=== PATIENT | female | born 1975 ===

== ENCOUNTER 2023-01-30 05:50 | Day surgery (SDC) | payer OTHER ==
[2023-01-30] MEDS ORDERED: OXYC1TAB9 PO (11:54)
== END 2023-01-30 19:45 | disposition home or self-care (01) ==
LOC: CIR.AMB 05:50
PROVIDERS: ATTEND Surgery
DX: K64.2 Third degree hemorrhoids (principal); K64.4 Residual hemorrhoidal skin tags; K64.8 Other hemorrhoids; K59.09 Other constipation; I10 Essential (primary) hypertension; Z20.822 Contact with and (suspected) exposure to COVID-19